=== PATIENT | male | born 1970 | race Caucasian/White ===

== ENCOUNTER 2019-08-30 11:00 | Outpatient (CLI) | payer OTHER, SELFPAY ==
--- NOTE | ~2019-08-30 | XR_ITS ---
XR_[id number] DATE: 08/30/2019 11:42 INDICATION: Follow-up from neck surgery 5 weeks ago TECHNIQUE: AP and lateral views in collar COMPARISON: 02/13/2010 cervical spine FINDINGS: There is straightening of the cervical spine which may be due to muscle spasm. Status post anterior and interbody spinal fusion at C5-C7. No fracture or dislocation or locked facet. No unusual prevertebral soft tissue swelling is evident. IMPRESSION: Status post anterior and interbody spinal fusion at C5-C7 No fracture or dislocation Reviewed, dictated and finalized at [facility] Reviewed, dictated and finalized at [facility].
== END 2019-08-30 11:01 | disposition home or self-care (01) ==
DX: Z09 Encounter for follow-up examination after completed treatment for conditions other than malignant neoplasm (principal); Z98.1 Arthrodesis status
CPT/HCPCS: 72040

== ENCOUNTER 2023-10-31 07:29 | Emergency (ER) | payer OTHER, SELFPAY ==
[2023-10-31 07:33] VITALS: BP 149/90; PULSE 70; RESP 18; TEMP 36.7; O2SAT 97
[2023-10-31 08:02] LABS: Basophils Absolute Auto 0.1 K/mm3 (0.0-0.1); Basophils Percent Auto 0.6 % (0.2-1.2); Eosinophils Absolute Auto 0.5 K/mm3 (0-0.3); Eosinophils Percent Auto 4.2 % (0-4.4); Hematocrit 48.4 % (42.0-52.0); Hemoglobin 16.2 g/dL (14.0-18.0); Immature Granulocyte Absolute 0.15 K/mm3 (0.00-0.031); Immature Granulocyte Percent A 1.4 % (0-0.5); Lymphocytes Absolute Auto 2.74 K/mm3 (0.9-3.2); Lymphocytes Percent Auto 25.4 % (18.3-44.2); Mean Corpuscular HGB Conc 33.5 g/dl (32-36); Mean Corpuscular Hemoglobin 32.2 pg (26-34); Mean Corpuscular Volume 96.2 fl (80-100); Mean Platelet Volume 9.2 fl (7.4-10.4); Monocytes Absolute Auto 0.8 K/mm3 (0.1-0.6); Monocytes Percent Auto 7.8 % (2.6-8.5); Neutrophils Absolute Auto 6.6 K/mm3 (1.3-6.7); Neutrophils Percent Auto 60.6 % (45.5-73.1); Platelet Count Result 269 k/mm3 (150-375); Red Blood Count 5.03 M/mm3 (4.6-6.20); Red Cell Distribution Width 12.8 % (11.5-14.5); White Blood Count 10.8 K/mm3 (4.5-10.0)
[2023-10-31 08:06] LABS: Alanine Aminotransferase 38 U/L (6-50); Albumin Level 4.8 g/dL (3.5-5.1); Alkaline Phosphatase 60 U/L (38-126); Anion Gap 7 mmol/L (4-12); Aspartate Amino Transferase 39 U/L (17-59); Bilirubin,Total 0.7 mg/dL (0.2-1.3); Blood Urea Nitrogen 18 mg/dL (9-20); Calcium 9.7 mg/dL (8.4-10.2); Carbon Dioxide 27 mmol/L (22-30); Chloride 105 mmol/L (98-107); Estimated CRCL calculation 111 ml/min; Estimated Glomerular Filt Rate > 60; Glucose 112 mg/dL (65-110); Potassium 4.2 mmol/L (3.4-5.0); Sodium 139 mmol/L (137-145)
[2023-10-31 08:11] LABS: Partial Thromboplastin Time 27.1 Seconds (22.3-36.8); Prothrombin Time 13.2 Seconds (11.1-14.7)
--- NOTE | 2023-10-31 08:20 | ED.GIBLEED ---
HPI - GI Bleed General Chief complaint: GI Bleed Stated complaint: rectal bleeding Time Seen by Provider: 10/31/23 07:33 History of Present Illness HPI Narrative: This is a 53-year-old male, with no known past medical history, who presents to the emergency department complaining of bright red blood in his stool over the past week. Patient states over the past week and half, he has had to strain with bowel movements. He has noticed some pain with passage of stool and associated bright red blood, starting 1st with specks of blood on wiping, followed by small streaks of blood on his stool. He has no other complaints and denies chest pain, shortness of breath, lightheadedness, bleeding elsewhere, family history of colon cancer or no bleeding disorders. He denies use anticoagulants. Related Data Home Medications Medication Instructions Recorded Confirmed No Home Medications 07/06/20 10/23/21 Allergies Allergy/AdvReac Type Severity Reaction Status Date / Time Penicillins AdvReac Intermediate stomach Verified 10/31/23 07:31 upset LEMONADE Allergy Mild Unknown Uncoded 10/31/23 07:31 ORANGE JUICE Allergy Mild Unknown Uncoded 10/31/23 07:31 [facility] Mild Unknown Uncoded 10/31/23 07:31 Review of Systems Review of Systems: All systems reviewed & are unremarkable except as noted in HPI and below (HPI) PMFSH Past Medical History Medical History Bilateral shoulder pain BMI 33.0-33.9,adult BMI 38.0-38.9,adult Left knee pain Subacromial bursitis of both shoulders Surgical History Surgical History H/O spinal fusion c5,c6,c7 in 2019 Social History Social History Smoking status: Former smoker Tobacco type: cigarettes Alcohol intake: current Alcohol use details: occasional Substance use: current Substance use type: marijuana Living arrangements: with family Occupation/Education: occupation 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 HEAD: Normocephalic, atraumatic. EYES: PERRLA and EOMI. No conjunctival pallor. CHEST: Clear to auscultation. No respiratory distress. No wheezes rales or rhonchi HEART: Regular rate and rhythm. No murmur heard. Normal peripheral pulses. ABDOMEN: Soft, nontender, nondistended, normal active bowel sounds. RECTAL: External exam demonstrates changes consistent with anal fissure at the 6 o'clock position. Digital rectal exam elicited some pain in this area though there is normal appearing stool without blood and no palpable mass. EXTREMITIES: Normal range of motion. No edema. SKIN: Warm, dry, no rash. NEURO: Alert and oriented x3. No focal deficit. Moving all 4 limbs spontaneously PSYCH: Normal mood and affect. Course Course Emergency Course: 08:22 - CBC demonstrates slightly elevated white blood cell count of 10.8 but is otherwise unremarkable with a hemoglobin of 16.2 and hematocrit of 40.4. Platelets within normal limits. Coags within normal limits. Chemistries unremarkable. I suspect the patient's pain and bright red blood is related anal fissure. Will discharge with recommendation for fiber supplementation and stool softeners. I discussed the findings and recommendations with the patient. Discussed return and emergency precautions including signs/symptoms of symptomatic anemia and GI bleed. The patient voiced understanding and agreement with the plan. All questions answered to his satisfaction. Vital Signs Vital signs: Vital Signs Temperature 98.1 F 10/31/23 07:33 Pulse Rate 70 10/31/23 07:33 Respiratory Rate 18 10/31/23 07:33 Blood Pressure 149/90 H 10/31/23 07:33 Pulse Oximetry 97 10/31/23 07:33 Oxygen Delivery
== END 2023-10-31 08:50 | disposition home or self-care (01) ==
PROVIDERS: Emergency Provider Preventive Medicine Aerospace Medicine
DX: K62.5 Hemorrhage of anus and rectum (principal); K60.2 Anal fissure, unspecified; K59.00 Constipation, unspecified; Z98.1 Arthrodesis status; Z87.891 Personal history of nicotine dependence
CPT/HCPCS: 36415; 80053; 85025; 85610; 85730; 86850; 86900; 86901; 99283